=== PATIENT | male | born 1950 | race Hispanic/Latino ===

== ENCOUNTER 2021-10-16 11:01 | Observation (INO) | payer MEDICARE ==
[~2021-10-16] VITALS: Ht 170.2 cm; Wt 83.5 kg
[2021-10-16] MEDS ORDERED: SODIUM CHLORIDE 0.9% 1000ML 1,000 ML IV STA (11:03)
[2021-10-16 11:24] LABS: BASOPHILS % 0.2 % (0.0-1.0); EOSINOPHILS # (AUTO) 0.3 (0.0-0.4); EOSINOPHILS % 5.1 % (0.0-6.0); HEMATOCRIT 43.3 % (38.2-49.6); HEMOGLOBIN 15.2 g/dL (14.0-18.0); LYMPHOCYTES # (AUTO) 1.9 (1.0-3.2); LYMPHOCYTES % 34.4 % (18.0-39.1); MEAN CORPUSCULAR HEMOGLOBIN 31.5 pg (28-32); MEAN CORPUSCULAR HGB CONC 35.1 g/dL (31-35); MEAN CORPUSCULAR VOLUME 89.6 fL (81-99); MONOCYTES # (AUTO) 0.5 (0.2-0.8); MONOCYTES % 8.2 % (4.4-11.3); NEUTROPHILS # (AUTO) 2.9 (2.1-6.9); NEUTROPHILS % 51.9 % (38.7-80.0); PLATELET COUNT 182 x10e3/uL (140-360); RED BLOOD COUNT 4.83 x10e6/uL (4.3-5.7); RED CELL DISTRIBUTION WIDTH 12.8 % (11.7-14.4)
[2021-10-16 11:46] LABS: ALBUMIN 3.8 g/dL (3.5-5.0); ALBUMIN/GLOBULIN RATIO 0.8 (0.8-2.0); ANION GAP 14.2 mmol/L (8-16); CALCIUM 9.8 mg/dL (8.4-10.2); CREATININE, SERUM 1.72 mg/dL (0.72-1.25); POTASSIUM 4.2 mmol/L (3.5-5.1)
[2021-10-16 11:53] LABS: CREATINE KINASE MB 1.3 ng/mL (0-5.0)
[2021-10-16 12:38] LABS: CLARITY,URINE CLEAR (CLEAR); COLOR,URINE YELLOW (YELLOW); KETONES,URINE NEGATIVE (NEGATIVE); LEUKOCYTE ESTERASE ,URINE NEGATIVE (NEGATIVE); NITRITE,URINE NEGATIVE (NEGATIVE); PROTEIN,URINE DIPSTICK NEGATIVE (NEGATIVE); URINE UROBILINOGEN 0.2 mg/dL (0.2 - 1)
[2021-10-16 12:46] LABS: RBC,URINE 0-5 /HPF (0-5)
[2021-10-16] MEDS ORDERED: SODIUM CHLORIDE 0.9% 50ML 0 ML ONE (13:39)
[2021-10-16] MEDS ORDERED: IOPAMIDOL 370 MG/ML 200 ML INFUS..BTL INJ ONE (13:39)
[2021-10-16] MEDS ORDERED: ONDANSETRON HCL INJ 2MG/ML 2ML 2 MG/ML VIAL IV PRN (15:00)
[2021-10-16] MEDS ORDERED: Morphine 4mg Syringe 4 MG/ML INJ IV PRN (15:00)
[2021-10-16] MEDS: SODIUM CHLORIDE 0.9% 1000ML 1,000 ML IV SCH ×2 (16:09→23:31)
[2021-10-16 17:15] VITALS: BP 133/72
[2021-10-16 17:17] VITALS: BP 133/72
[2021-10-16 17:44] VITALS: BP 133/72
[2021-10-16] MEDS ORDERED: DICYCLOMINE HCL20 MG PO (18:14)
[2021-10-16] MEDS ORDERED: LISINOPRIL10 MG PO (18:14)
[2021-10-16] MEDS ORDERED: TRICOR48 MG PO (18:14)
[2021-10-16] MEDS ORDERED: FUROSEMIDE40 MG PO (18:14)
[2021-10-16] MEDS ORDERED: METOPROLOL TART25 MG PO (18:14)
[2021-10-16] MEDS ORDERED: LEVOTHYROXINE100 MC1 PO (18:14)
[2021-10-16] MEDS ORDERED: PROTONIX20 MG PO (18:14)
[2021-10-16] MEDS ORDERED: LIPITOR20 MG PO (18:14)
[2021-10-16] MEDS ORDERED: ASPIRIN81 MG PO (18:14)
[2021-10-16 20:46] VITALS: BP 129/68
[2021-10-16 21:22] VITALS: BP 129/68
[2021-10-17] VITALS (10 sets, daily range): BP systolic 118–141; BP diastolic 67–79
[2021-10-17 02:25] LABS: CREATINE KINASE MB 0.8 ng/mL (0-5.0)
[2021-10-17 05:20] LABS: BASOPHILS % 0.2 % (0.0-1.0); EOSINOPHILS # (AUTO) 0.3 (0.0-0.4); EOSINOPHILS % 5.9 % (0.0-6.0); HEMATOCRIT 34.5 % (38.2-49.6); LYMPHOCYTES # (AUTO) 1.7 (1.0-3.2); LYMPHOCYTES % 38.7 % (18.0-39.1); MEAN CORPUSCULAR HEMOGLOBIN 31.7 pg (28-32); MEAN CORPUSCULAR HGB CONC 34.8 g/dL (31-35); MEAN CORPUSCULAR VOLUME 91.3 fL (81-99); MONOCYTES # (AUTO) 0.4 (0.2-0.8); MONOCYTES % 9.2 % (4.4-11.3); NEUTROPHILS % 45.8 % (38.7-80.0); PLATELET COUNT 130 x10e3/uL (140-360); RED BLOOD COUNT 3.78 x10e6/uL (4.3-5.7); RED CELL DISTRIBUTION WIDTH 12.7 % (11.7-14.4)
[2021-10-17 05:47] LABS: ALBUMIN/GLOBULIN RATIO 0.9 (0.8-2.0); ANION GAP 8.9 mmol/L (8-16); CALCIUM 8.4 mg/dL (8.4-10.2); CREATININE, SERUM 1.17 mg/dL (0.72-1.25); POTASSIUM 3.9 mmol/L (3.5-5.1)
[2021-10-17 06:05] LABS: AMYLASE 103 U/L (25-125); LIPASE 51 U/L (8-78)
[2021-10-17 06:14] LABS: CREATINE KINASE MB 0.4 ng/mL (0-5.0)
[2021-10-17] MEDS: SODIUM CHLORIDE 0.9% 1000ML 1,000 ML IV SCH ×3 (07:25→23:15)
[2021-10-17] MEDS ORDERED: DICYCLOMINE HCL 20 MG TAB PO PRN (09:45)
[2021-10-17] MEDS ORDERED: ACETAMINOPHEN 325 MG TAB PO PRN (14:45)
[2021-10-17] MEDS: METOPROLOL TARTRATE 25 MG TAB PO SCH (17:00)
[2021-10-17] MEDS ORDERED: ATORVASTATIN 20 MG TAB PO SCH (21:00)
[2021-10-18 04:00] VITALS: BP 139/76
[2021-10-18 07:29] VITALS: BP 143/76
[2021-10-18 07:51] VITALS: BP 143/76
[2021-10-18] MEDS: METOPROLOL TARTRATE 25 MG TAB PO SCH (08:26)
[2021-10-18] MEDS ORDERED: PANTOPRAZOLE SOD 40 MG TABEC PO SCH (09:00)
[2021-10-18] MEDS ORDERED: ASPIRIN 81 MG CHEW TAB PO SCH (09:00)
[2021-10-18] MEDS ORDERED: FENOFIBRATE 48 MG TAB PO SCH (09:00)
[2021-10-18] MEDS ORDERED: LEVOTHYROXINE SODIUM 100 MCG/VIAL IV SCH (09:00)
[2021-10-18] MEDS ORDERED: ONDANSETRON HCL 4 MG ORAL DISINTEGRATING TAB PO PRN (11:45)
[2021-10-18] MEDS ORDERED: ATORVASTATIN 40 MG TAB PO SCH (21:00)
== END 2021-10-18 11:25 | disposition home or self-care (01) ==
LOC: ER 11:14 → ERHOLD 14:56 → MED/SURG3 17:07
PROVIDERS: ADMIT Internal Medicine; ATTEND Internal Medicine
DX: K85.90 Acute pancreatitis without necrosis or infection, unspecified (principal); R91.1 Solitary pulmonary nodule; I10 Essential (primary) hypertension; E78.5 Hyperlipidemia, unspecified; E11.9 Type 2 diabetes mellitus without complications; E03.9 Hypothyroidism, unspecified; Z20.822 Contact with and (suspected) exposure to COVID-19; Z79.4 Long term (current) use of insulin; Z96.0 Presence of urogenital implants; K44.9 Diaphragmatic hernia without obstruction or gangrene; N28.1 Cyst of kidney, acquired
CPT/HCPCS: 36415 ×2; 71045; 71250; 74150; 80053 ×2; 81001; 82150; 82550 ×2; 82553 ×2; 82948 ×2; 83690 ×3; 84484 ×2; 85025 ×2; 93005; 94799 ×2; 99284; C9113; G0378 ×3; J7030 ×3; S0164; U0002; Q9967